=== PATIENT | male | born 1970 | race Asian ===

== ENCOUNTER 2019-09-21 21:44 | Emergency (ER) | payer OTHER ==
[~2019-09-21] VITALS: Ht 162.6 cm; Wt 73.8 kg
--- NOTE | 2019-09-21 21:55 | PHYS DOC ---
Past History Past Medical History: Arthritis Past Medical History Psoriasis Past Surgical History: Other Smoking: Non-smoker General Adult HPI: HPI: ".. I ve been sick now a couple weeks..... with this cough... but it gotten much worse the last couple days... I am due to get a immunosuppressive shot for my rheumatoid arthritis and I can't stop coughing..." Patient is a 49 year old MALE retired [employer] who presents with above hx. patient has history of immuno suppression with methotrexate and IM injections of for his severe rheumatoid arthritis and psoriasis. Patient denies any travel or specific ill contacts. Has been written mainly at home past month if possible. Son who lives with him is well. No recent travel overseas or outside the [place] area. Patient normally follows at the [facility] for his care. Patient also follows with a grinder lap for his rheumatoid arthritis and psoriasis. Patient did get a flu vaccination in March. Has had a Pneumovax. Patient denies any history of tuberculosis. Patient's family are from [facility]. No history of early onset of coronary artery disease. Mother is well and 80 years old, father at age 70 grandmother lived to [facility]. Patient denies any current chest pain, but does have increased dyspnea last couple weeks. Review of Systems: Review of Systems: Constitutional: Denies fever or chills Eyes: Denies change in visual acuity HENT: Denies nasal congestion or sore throat Respiratory: History of non-productive cough and shortness of breath with activity such as going up and down stairs. Cardiovascular: Denies chest pain or edema GI: Denies abdominal pain, nausea, vomiting, bloody stools or diarrhea : Denies dysuria Musculoskeletal: Denies back pain or joint pain Integument: Denies rash Neurologic: Denies headache, focal weakness or sensory changes Endocrine: Denies polyuria or polydipsia Lymphatic: Denies swollen glands Psychiatric: Denies depression or anxiety Heart Score: HEART Score for Chest Pain: HEART Score for Chest Pain Response (Comments) Value History Slighlty/Non-Suspicious 0 ECG Nonspecific Repolarizatio 1 Age >45 - < 65 1 Risk Factors 1 or 2 Risk Factors 1 Troponin < Normal Limit 0 Total 3 Risk Factors: Risk Factors: DM, Current or recent (<one month) smoker, HTN, HLP, family history of CAD, obesity. Risk Scores: Score 0 - 3: 2.5% MACE over next 6 weeks - Discharge Home Score 4 - 6: 20.3% MACE over next 6 weeks - Admit for Clinical Observation Score 7 - 10: 72.7% MACE over next 6 weeks - Early Invasive Strategies Family History: Family History: New onset early cardiac disease almost all family members live in excess of 70 years Current Medications: Current Meds: See nursing for home meds Allergies: Allergies: No known drug allergies Physical Exam: PE: Constitutional: Well developed, well nourished, no acute distress, non-toxic appearance. [] HENT: Normocephalic, atraumatic, bilateral external ears normal, oropharynx moist, no oral exudates, nose normal. [] Eyes: PERRLA, EOMI, conjunctiva normal, no discharge. [] Neck: Normal range of motion, no tenderness, supple, no stridor. [] Cardiovascular:Heart rate regular rhythm, no murmur [] Lungs & Thorax: Bilateral breath sounds equal apex with few scattered wheezes on auscultation [] Abdomen: Bowel sounds normal, soft, no tenderness, no masses, no pulsatile masses. [] Skin: Warm, dry, no erythema, no rash. [] Back: No tenderness, no CVA tenderness. [] Extremities: No tenderness, no cyanosis, no clubbing, ROM intact, no edema. [] No cording in the legs. Neurologic: Alert and oriented X 3, normal motor function, normal sensory function, no focal deficits noted. [] Psychologic: Affect anxious, judgement normal, mood normal. [] EKG: EKG: My interpretation EKG shows a sinus bradycardia at 60 bpm. There is right axis deviation and some nonspecific contour changes. No findings of acute STEMI with contralateral changes. [] Radiology/Procedures: Radiology/Procedures: [IMAGING REPORT Signed PATIENT: KB LIZARRAGAACCOUNT: [id number] : 1970 LOCATION: ER AGE: 49 SEX: M EXAM STATUS: REG ER ORD. PHYSICIAN: LISA SALVADOR MD REASON: COUGHIN, IMMUNE SUPPRESSED PROCEDURE: CHEST PA & LATERAL PA and lateral chest x-ray HISTORY: Cough, immunosuppressed. FINDINGS: Heart size normal. Mediastinal silhouette is normal. No pneumothorax, pulmonary opacities or pleural effusions. The bones are unremarkable. IMPRESSION: No acute process evident. Electronically signed by: Vera Pal MD (09/22/2019 3:31 AM) [id number] DICTATED AND SIGNED BY: VERA PAL MD DATE: 09/22/19330 CC: LISA SALVADOR MD; PCP,UNKNOWN ~ ][place] [address] IMAGING REPORT Signed PATIENT: KB LIZARRAGAACCOUNT: [id number] : 1970 LOCATION: ER AGE: 49 SEX: M EXAM STATUS: REG ER ORD. PHYSICIAN: LISA SALVADOR MD REASON: OMNI 350,100ML IV.DYSPNEA PROCEDURE: CT ANGIOGRAPHY CHEST CT angiography chest with contrast PQRS statement: CT scans at this facility use dose reduction including either automated exposure control, iterative reconstructions, and /or weight based radiation dosing via mA and kV modification when appropriate to reduce radiation dose to as low as reasonably achievable. HISTORY: Dyspnea. TECHNIQUE: CT imaging the chest with 3-D MIP reconstructions of the pulmonary arteries with 100 mL Omnipaque 350 intravenous contrast. FINDINGS: Heart size normal. Aorta and esophagus are unremarkable. Left coronary calcified plaque. No adenopathy in the chest. Respiratory motion artifact as well as decreased contrast density within the peripheral pulmonary arteries decreasing sensitivity to detect peripheral lobar small pulmonary artery emboli. In light of this no pulmonary artery emboli are evident. Calcified granuloma right hilum. No pneumothorax, pulmonary opacities or pleural effusions. Bones are unremarkable. IMPRESSION: 1. No acute process. No pulmonary artery emboli. 2. Calcified plaque of the left coronary artery. Electronically signed by: Vera Pal MD (09/22/2019 3:31 AM) [id number] DICTATED AND SIGNED BY: VERA PAL MD DATE: 09/22/19330 CC: LISA SALVADOR MD; PCP,UNKNOWN ~ Course & Med Decision Making: Course & Med Decision Making Pertinent Labs and Imaging studies reviewed. (See chart for details) Patient is taking Zithromax 250 mg today and use the MDI 2 puffs 4 times a day. Patient discuss with his grinder lap as to issues of receiving his next immunosuppression course and continuing his methotrexate.. Patient take a daily baby aspirin. Patient to schedule an outpatient stress test. Patient return if any concerns. Recommend continue self-isolation [] Impression: 1. Complaints of dyspnea with a nonproductive cough 2. Does have findings of the left coronary artery calcification on CT 3. Suspect viral syndrome 4. History of rheumatoid arthritis and psoriasis Yen Disclaimer: Yen Disclaimer: This electronic medical record was generated, in whole or in part, using a voice recognition dictation system. Departure Departure: Disposition: HOME/RESIDENCE PRIOR TO ADM Condition: STABLE Referrals: PCP,UNKNOWN (PCP) Scripts Azithromycin (ZITHROMAX) 250 Mg Tablet 250 MG PO DAILY for ANTI-BIOTIC, #5 TAB 0 Refills Prov: LISA SALVADOR MD 09/22/19 Albuterol Sulfate (VENTOLIN HFA INHALER) 18 Gm Hfa.aer.ad 2 PUFF IH PRN Q4HRS PRN for FOR ASTHMA for 30 Days, INHALER 0 Refills Prov: LISA SALVADOR MD 09/22/19 Yen Disclaimer This chart was dictated in whole or in part using Voice Recognition software in a busy, high-work load, and often noisy Emergency Department environment. It may contain unintended and wholly unrecognized errors or omissions. LISA SALVADOR MD Sep 21, 2019 21:55
[2019-09-22 00:42] LABS: INFLUENZA A PATIENT NEGATIVE (NEGATIVE); INFLUENZA B PATIENT NEGATIVE (NEGATIVE)
[2019-09-22] MEDS ORDERED: IV RINGERS SOLUTION,LACTATED 1,000 ML IV SCH (01:30)
[2019-09-22] MEDS ORDERED: CONTRAST GIVEN MC PRN (01:45)
--- NOTE | 2019-09-22 01:52 | EKG ---
[address] [address] Test Date: 2019-09-22 Test Time: 01:27:00 Pat Name: KB LIZARRAGA Department: Room: Gender: M House Repairer: : 1970 Requested By: LISA SALVADOR Order Number: [id number] Reading MD: Eulogio Schuster Measurements Intervals [place] Rate: 60 P: 152 HI: 188 QRS: 161 QRSD: 84 T: 158 QT: 412 QTc: 412 Interpretive Statements SINUS RHYTHM ABNORMAL RIGHT AXIS DEVIATION QRS(T) CONTOUR ABNORMALITY CONSIDER HIGH LATERAL INFARCT ABNORMAL ECG Electronically Signed On 09-23-2019 20:05:42 CDT by Eulogio Schuster
[2019-09-22] MEDS ORDERED: IOHEXOL 350 MG/ML 100 ML VIAL. IV ONE (02:00)
[2019-09-22] MEDS ORDERED: IPRATRPIUM/ALBUTEROL 0.5/2.5MG 3 ML NEBU. NEB ONE (02:00)
[2019-09-22] MEDS ORDERED: AZITHROMYCIN 250 MG TABLET. PO ONE (02:00)
--- NOTE | 2019-09-22 03:33 | RAD ---
CT angiography chest with contrast PQRS statement: CT scans at this facility use dose reduction including either automated exposure control, iterative reconstructions, and /or weight based radiation dosing via mA and kV modification when appropriate to reduce radiation dose to as low as reasonably achievable. HISTORY: Dyspnea. TECHNIQUE: CT imaging the chest with 3-D MIP reconstructions of the pulmonary arteries with 100 mL Omnipaque 350 intravenous contrast. FINDINGS: Heart size normal. Aorta and esophagus are unremarkable. Left coronary calcified plaque. No adenopathy in the chest. Respiratory motion artifact as well as decreased contrast density within the peripheral pulmonary arteries decreasing sensitivity to detect peripheral lobar small pulmonary artery emboli. In light of this no pulmonary artery emboli are evident. Calcified granuloma right hilum. No pneumothorax, pulmonary opacities or pleural effusions. Bones are unremarkable. IMPRESSION: 1. No acute process. No pulmonary artery emboli. 2. Calcified plaque of the left coronary artery. Electronically signed by: Clayton Pal MD (09/22/2019 3:31 AM) [id number]
--- NOTE | 2019-09-22 03:34 | RAD ---
PA and lateral chest x-ray HISTORY: Cough, immunosuppressed. FINDINGS: Heart size normal. Mediastinal silhouette is normal. No pneumothorax, pulmonary opacities or pleural effusions. The bones are unremarkable. IMPRESSION: No acute process evident. Electronically signed by: Clayton Pal MD (09/22/2019 3:31 AM) [id number]
[2019-09-22 06:00] VITALS: BP 136/84
[2019-09-22] MEDS ORDERED: AZIT250T PO (06:02)
[2019-09-22] MEDS ORDERED: ALBU2.5V8 IH (06:02)
[2019-09-22 06:37] LABS: C REACTIVE PROTEIN 1.8 mg/L (0-3.3); CREATININE 1.1 mg/dL (0.7-1.3); DIRECT BILIRUBIN 0.2 mg/dL (0.0-0.2); GFR 71.8; MAGNESIUM 2.3 mg/dL (1.8-2.4); POTASSIUM 3.9 mmol/L (3.5-5.1); TOTAL BILIRUBIN 0.9 mg/dL (0.2-1.0); TOTAL PROTEIN 8.3 g/dL (6.4-8.2)
[2019-09-22 08:25] LABS: BARBITURATES NEG (NEG); BENZODIAZEPINES NEG (NEG); CANNABINOIDS NEG (NEG); COCAINE NEG (NEG); METHADONE NEG (NEG); OPIATES NEG (NEG); PHENCYCLIDINE NEG (NEG)
[2019-09-22 08:30] LABS: AMPHETAMINE/METHAMPHETAMINE NEG (NEG)
[2019-09-22 11:12] LABS: HEMATOCRIT 34.6 % (39.0-53.0); HEMOGLOBIN 10.3 g/dL (13.0-17.5); MEAN CORPUSCULAR VOLUME 55 fL (79-100); RED BLOOD COUNT 6.31 x10^6/uL (4.30-5.70)
[2019-09-22 11:13] LABS: MEAN CORPUSCULAR HEMOGLOBIN 16 pg (25-35); MEAN CORPUSCULAR HGB CONC 30 g/dL (31-37); PLATELET COUNT 273 x10^3/uL (140-400); RED CELL DISTRIBUTION WIDTH 21.1 % (11.5-14.5)
[2019-09-22 11:15] LABS: WHITE BLOOD COUNT 9.1 x10^3/uL (4.0-11.0)
[2019-09-22 11:30] LABS: % EOS 5 % (0-5); % LYMPHS 56 % (24-48); % MONOS 9 % (0-10); % SEGS 30 % (35-66)
[2019-09-22 11:33] LABS: ANISOCYTOSIS MOD; HYPOCHROMIA MOD; MICROCYTOSIS MOD; PLT ESTIMATE ADEQUATE (ADEQUATE); POIKILOCYTOSIS MOD; TARGET CELLS FEW; TEAR DROP CELLS OCC
[2019-09-22 11:34] LABS: OVALOCYTES FEW
== END 2019-09-22 06:35 | disposition home or self-care (01) ==
LOC: ER 21:44
DX: R06.00 Dyspnea, unspecified (principal); R05 Cough; I25.10 Atherosclerotic heart disease of native coronary artery without angina pectoris; M06.9 Rheumatoid arthritis, unspecified; L40.9 Psoriasis, unspecified
CPT/HCPCS: 36415; 71046; 71275; 80048; 80076; 80307; 82550; 83605; 83735; 83880; 84484; 85007; 85025; 85379; 85610; 85730; 86140; 87040; 87070; 87804; 87880; 93005; 94640; 99285; J0456; J7120; Q9967